=== PATIENT | female | born 1985 | race Caucasian/White ===

== ENCOUNTER 2019-06-18 17:25 | Emergency (ER) | payer SELFPAY ==
[2019-06-18 17:26] VITALS: BP 154/98; PULSE 78; RESP 16; TEMP 36.1; O2SAT 97; BMI 26.6
--- NOTE | 2019-06-18 17:39 | EKG12_ITS ---
Test Reason : CP Blood Pressure : / mmHG Vent. Rate : 077 BPM Atrial Rate : 077 BPM P-R Int : 134 ms QRS Dur : 090 ms QT Int : 372 ms P-R-T Axes : 044 013 072 degrees QTc Int : 420 ms Normal sinus rhythm Septal infarct , age undetermined , cannot be excluded Abnormal ECG Confirmed by OKSANA ANDREWS, LB ([id number]), map editor VICTORINA ARECHIGA ([id number]) on 06/20/2019 9:40:21 AM Referred By: ALEX/KEVIN Confirmed By:LB GANDHI MD
--- NOTE | 2019-06-18 17:39 | RAD_ITS ---
STUDY: X-RAY CHEST REASON FOR EXAM: Female, 34 years old. Syncope. TECHNIQUE: Single AP portable view of the chest. COMPARISON: None. FINDINGS: The lungs are clear and expanded. There is no demonstrated pleural abnormality. Normal size heart. Normal mediastinum and reese. Normal visualized pulmonary arteries. Normal visualized aortic arch and descending thoracic aorta. Normal visualized thoracic spine. Normal visualized ribs, clavicles, and shoulders. There is no demonstrated abnormality of the visualized soft tissue structures of the upper abdomen. RAD/Chest 1 View (Portable) IMPRESSION: Normal x-ray examination of the chest. Electronically Signed: Vance Norman DO at 18:10 EST Tel [phone], Service support ,
--- NOTE | 2019-06-18 17:40 | ED.DCSUM_ITS ---
- ER Visit Summary Date of Service: 06/18/19 Chief Complaint: Passed out at work History of Present Illness: The patient is a 34 F exam past medical history. Patient states she is at work. She drank some chocolate milk. She thought was going down the wrong tube and passed out. Said a coworker caught her lowered to the ground. Before it happened she denied any shortness of breath or headache. She is never had a syncopal event before. Denies any recent nausea, vomiting or diarrhea. Her last menstrual period was about 3 weeks ago. No leg pain or swelling. No history of prior PE or DVT. Physical Examination: Young female no acute distress. Vital signs are stable. And afebrile. Pulse ox 97% room air no signs of hypoxia. Initial blood pressure 154/98. HEENT exam unremarkable. Dry reactive light. Extra motions are intact. Normal speech. No facial droop. No signs of trauma to her face or scalp. Neck nontender. Lungs clear to auscultation bilaterally. Heart regular rhythm no murmur rate about 80. Chest were nontender. Abdomen soft nontender. Normal bowel sounds no peritoneal signs. Patient is moving all 4 extremities. Neurovascular intact. 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 Dorsi plantar flexion intact. Normal radial pulses. Calves are nontender without edema or cords. Back nontender. Neurologic exam normal. NIH is 0. Fingertip to nose and [id number] all within normal limits. Test Results: Chest x-ray portable one view read as normal by myself the radiologist. Normal cardiac silhouette. EKG sinus rhythm rate 77 no acute signs of PR or ischemia. No obvious dysrhythmia. CBC normal. White count of 9. Hemoglobin 13. Chemistries normal normal creatinine and gap. Troponin normal. Orthostatic vital signs were negative. Emergency Department Course and Treatment: Patient with a syncopal event. Currently has a normal exam. PD exam the patient is doing well at 2031 PM. Her exam is unchanged. We went over all of her test results. She will be discharged home. Treatment Plan: Follow-up with a local physician. Disposition: Discharge Impression: Acute syncope of uncertain etiology This note was generated with Attolight[employer] software. It may contain incorrect words, spelling, and punctuation that were not noted in review of the chart prior to signing ED Disposition - Plan for ED Patient: Referrals: Care Physician,Debbie Primary [Primary Care Provider] -
[2019-06-18 18:01] LABS: Absolute Lymphocyte Count 2.97 X10^3/uL (0.83-4.51); Absolute Neutrophil Count 5.5 X10^3/uL (2.0-7.7); Basophil# 0.05 X10^3/uL; Basophil% 0.5 % (0-1); Eosinophil# 0.16 X10^3/uL; Eosinophils% 1.7 % (0-5); Hematocrit 39.4 % (37-47); Lymphocyte # 2.97 X10^3/ul (4.0); Lymphocyte % 31.6 % (19-41); Mean Corpuscular Hgb 28.4 pg (27.0-32.0); Mean Platelet Vol. 9.1 fl (6.2-12.0); Monocyte# 0.69 X10^3/uL; Monocyte% 7.3 % (0-10); NRBC Flagged by Analyzer 0 % (0-5); Neutrophil # 5.51 X10^3/uL (2.7-7.7); Neutrophil % 58.6 % (47-70); POSITIVE MORPHOLOGY YES; Platelet Count 254 K/mm3 (150-450); RBC Distribution Width CV 12.7 % (11.6-14.6); RBC Distribution Width SD 39.8 fl (35.1-43.9); Red Blood Count 4.58 M/mm3 (4.2-5.4); White Blood Count 9.4 K/mm3 (4.4-11.0)
[2019-06-18 18:10] LABS: Differential Indicated SCAN CRITERIA MET
[2019-06-18 18:14] LABS: Anion Gap 5 (5-15); BUN 12 mg/dL (7-18); BUN/Creat Ratio 14.5 RATIO (10-20); Calcium,Total 9.2 mg/dL (8.5-10.1); Chloride 108 mmol/L (98-107); Creatinine, Serum 0.82 mg/dL (0.55-1.02); EST Glomerular Filtration Rate 83 mL/min (>60); Est Glom Filt Rate - Afr Amer 101 mL/min (>60); Estimated Creatinine Clearance 88.79 ml/min; Glucose 102 mg/dL (74-106); Potassium 3.7 mmol/L (3.5-5.1); Sodium Level 139 mmol/L (136-145)
[2019-06-18 18:16] VITALS: BP 137/90; BP 141/72; BP 145/90; PULSE 63; PULSE 76; PULSE 86
[2019-06-18 18:33] LABS: Differential Comment SCANNED
--- NOTE | 2019-06-18 20:36 | ED.DEP ---
ED Disposition - Plan for ED Patient: Disposition: Home or Assisted Living Instructions: SYNCOPE, Unk Cause Referrals: Lam Patel MD [STAFF PHYSICIAN] - 1 Week Additional Instructions: Your tests and exam are normal today. We do not have a cause of why you may have passed out. Follow-up with a local physician as needed. Return if feeling worse.
[2019-06-18 20:37] VITALS: BP 149/100; O2SAT 96
== END 2019-06-18 20:40 | disposition home or self-care (01) ==
PROVIDERS: Emergency Provider Emergency Medicine
DX: R55 Syncope and collapse (principal); R11.2 Nausea with vomiting, unspecified; R19.7 Diarrhea, unspecified; Z72.0 Tobacco use
CPT/HCPCS: 71045; 80048; 84484; 85025; 93005; 99285; A4216

== ENCOUNTER 2025-01-20 14:32 | Emergency (ER) | payer OTHER, SELFPAY ==
[2025-01-20 14:34] VITALS: BP 185/122; PULSE 98; RESP 18; TEMP 36.9; O2SAT 98; BMI 37.4
[2025-01-20 14:45] VITALS: BP 178/100
--- NOTE | 2025-01-20 15:34 | EX.ED.DYSGE1 ---
HPI History of Present Illness Chief Complaint: Hypertension Informant: patient Onset/Context/Timing Onset: Days (3) Context: Gradual Onset Timing: Continuous Quality: Burning Location: Left iliac crest Worsened by: Palpation Relieved by: Nothing Narrative Narrative: Patient presents with elevated blood pressure that was noticed at the urgent care today. Patient states she was bit by a spider 3 days ago. Patient states she has redness and swelling over her left hip area. Patient describes it as burning. Patient states it is worse with palpation. Patient states nothing makes it better. Patient denies any discharge or drainage. Patient went to urgent care today to see if they could prescribe an antibiotic for her bite. Patient states he noted her blood pressure was elevated and referred her to the emergency department. [facility] Medical History Asthma TSS (toxic shock syndrome) Home Medications ?Medication ?Instructions ?Recorded ?Last Taken ?Type amoxicillin 875 mg-potassium 875 mg PO Q12H #20 TABLETS 01/20/25 Unknown Rx clavulanate 125 mg tablet cetirizine 10 mg tablet (24Hour 10 mg PO DAILY allergy symptoms 01/20/25 01/20/25 History Allergy) omeprazole 20 mg tablet,delayed 20 mg PO DAILY 01/20/25 01/20/25 History release Allergy/AdvReac Type Severity Reaction Status Date / Time latex AdvReac Itching Verified 01/20/25 14:36 Family History no significant family his Surgical History Previous section Social History Smoking Status: Heavy Smoker (>10/day) ROS ROS ED Constitutional Constitutional ED: Denies chills or fever(s) Eyes Eyes: Denies blurry vision or change in vision ENT ENT ED: Denies rhinorrhea or sore throat Cardiovascular Cardiovascular: Denies chest pain or palpitations Respiratory/Chest Respiratory/Chest: Reports dyspnea; Denies cough Gastrointestinal Gastrointestinal: Denies nausea or vomiting Genitourinary Genitourinary ED: Denies dysuria or hematuria Musculoskeletal Musculoskeletal: Denies back pain or neck pain Integumentary Denies abscess or rash Neurologic Neurologic: Reports headache(s); Denies weakness Allergic/Immunologic Allergic/Immunologic ED: Denies mouth swelling or urticaria EXAM Physical Exam Const Vital Signs: 01/20/25 14:34 01/20/25 14:45 01/20/25 14:45 Temperature 98.4 F Temperature Source Oral Pulse Rate 98 Respiratory Rate 18 Respiratory Effort Normal Respiratory Depth Respiratory Pattern Normal Blood Pressure 185/122 H 178/100 H Blood Pressure Mean 143 126 Pulse Ox 98 Oxygen Delivery Method Room Air 01/20/25 14:46 01/20/25 16:33 Temperature Temperature Source Pulse Rate 67 Respiratory Rate 22 H Respiratory Effort Normal Respiratory Depth Normal Respiratory Pattern Normal Blood Pressure 168/103 H Blood Pressure Mean 124 Pulse Ox 98 Oxygen Delivery Method Room Air Room Air Positive well nourished and well developed Constitutional Narrative: BMI is 37.5. General Appearance ED: well developed and NAD HEENT Reports moist mucous membranes Neck supple and no JVD Resp normal respiratory effort and clear to auscultation bilaterally Cardio regular rate and regular rhythm GI non-tender and non-distended Palpation: soft Extremity normal to inspection Neuro oriented x3, CN's II-XII intact bilaterally and no sensory deficits noted Sensorium / Orientation: alert Motor Exam: strength 5/5 throughout Psych mental status grossly normal Skin Skin Narrative: There is erythema, warmth, and induration over the left iliac crest area. There is no fluctuance. There is no discharge or drainage. There does not appear to be any abscess formation. MDM MDM MDM Narrative Medical decision making narrative: Differential diagnosis includes cellulitis, hypertension, electrolyte abnormality, cardiac dysrhythmia, cardiac ischemia, and anxiety. EKG will be obtained to assess for cardiac dysrhythmia or cardiac ischemia. Chest x-ray will be obtained to assess for pneumonia and anticoagulation was started. CBC will be obtained to assess for leukocytosis and anemia. Basic metabolic profile will be obtained to assess for electrolyte abnormality and renal function. High-sensitivity troponin will be obtained to assess for cardiac ischemia. History & Record Review Additional record(s) reviewed:: Prior labs Lab Data Attestation: I reviewed the patient's lab results. Lab results narrative: CBC was reviewed and was within normal limits. Basic metabolic profile was reviewed and was within normal limits. High-sensitivity troponin was reviewed and was less than 6. Labs: Laboratory Results - last 24 hr 01/20/25 14:56 WBC 10.5 RBC 4.93 Hgb 12.8 Hct 39.2 MCV 79.5 L MCH 26.0 L MCHC 32.7 RDW Std Deviation 40.5 RDW Coeff of Viktoria 14.1 Plt Count 312 MPV 9.5 Immature Gran % (Auto) 0.600 Neut % (Auto) 60.2 Lymph % (Auto) 29.7 [place] % (Auto) 7.0 Eos % (Auto) 1.9 Baso % (Auto) 0.6 Absolute Neuts (auto) 6.3 Absolute Lymphs (auto) 3.11 Nucleated RBC % 0 Platelet Estimate ADEQUATE RBC Morphology NORM C+C Sodium 139 Potassium 4.3 Chloride 106 Carbon Dioxide 21.4 Anion Gap 12 BUN 11 Creatinine 0.80 Estim Creat Clear Calc 113.49 Est GFR (MDRD) Non-Af 95 BUN/Creatinine Ratio 13.2 Glucose 93 Calcium 9.0 Troponin T High Sens < 6 EKG Initial EKG: Attestation: I personally reviewed and interpreted this EKG as follows: Interpretation: Sinus Rhythm (71) and No Acute Injury Pattern Comments: EKG was obtained. On my independent interpretation, it showed a normal sinus rhythm with a rate of 71. [place] interval, QRS interval, and QTc intervals were all normal. There is borderline left axis deviation at -20. There are no acute ST or T wave changes. Prior EKG tracings: available for review Prior: Unchanged (06/18/2019) Treatment and Re-Evaluation :: Patient was given a dose of Unasyn here. Patient was advised of her findings. Patient refused chest x-ray. Patient was given a prescription for Augmentin. Patient's blood pressure improved to 168/103. Patient was instructed to follow-up with her primary care physician in 5 to 7 days. Patient was instructed to use warm compresses to her left hip. Patient was instructed to continue to monitor her blood pressures at home. Patient was instructed to return if worse in any way. Patient understood and was agreeable with the plan. All questions were answered. Discharge Plan Triage Chief Complaint: Hypertension Other Complaint: Bite Shortness of Breath ED Provider: Vlad Medina Dx/Rx/DC Orders Clinical Impression: Cellulitis of left hip, Elevated blood pressure reading without diagnosis of hypertension Instructions: ED Cellulitis, ED Hypertension, To Be Confirmed Prescriptions: New amoxicillin-pot clavulanate 875-125 mg tablet 875 mg PO Q12H Qty: 20 0RF No Action omeprazole 20 mg tablet,delayed release (DR/EC) 20 mg PO DAILY cetirizine [24Hour Allergy] 10 mg tablet 10 mg PO DAILY Patient Comments: PT ONLY TAKE BECAUSE OF SPIDER BITE; NOT ROUTINE. Primary Care Provider: Care Physician,No Primary Referrals: Miguel Fernandes MD [Med Staff - All Terrain Vehicle Racer] - 3-5 Days Care Physician,No Primary [Primary Care Provider] - Print Language: [place] Disposition Disposition: Home, Self Care
--- NOTE | 2025-01-20 15:42 | EKG12_ITS ---
Test Reason : HYPERTENSION Blood Pressure : */* mmHG Vent. Rate : 71 BPM Atrial Rate : 71 BPM P-R Int : 140 ms QRS Dur : 92 ms QT Int : 400 ms P-R-T Axes : 29 -20 54 degrees QTcB Int : 434 ms Normal sinus rhythm Normal ECG Confirmed by AJAY ANDREWS, JOEL ([id number]), managing editor AILYN HE ([id number]) on 01/22/2025 7:45:17 AM Referred By: Confirmed By: JOEL MOSS MD
--- OUTSIDE RECORDS SUMMARY | 2025-01-20 15:45 | XMS RPT_ITS | CCD ---
Author Organization [facility] Care Team Providers Care Right Of Way Worker Name Role Phone Popeye ANDREWS, Justine Primary Care Provider [phone] TERE LR Attending Unavailable JUSTINE RUAON Referring Unavailable JUSTINE RUANO Primary Care Unavailable JUSTINE RUANO Referring Unavailable JUSTINE RUANO Primary Care Unavailable Allergies Allergy Classification Reported Allergen(s) Allergy Type Date of Onset Reaction(s) Facility (7 sources) Latex; Translations: [LATEX] Propensity to adverse reactions 7 [facility] Work Phone: (7 sources) venlafaxine; Translations: [VENLAFAXINE ANALOGUES] Drug Allergy 5 Mental Status Change [facility] Medications Current Medications Medication Drug Class(es) Dates Sig (Normalized) Sig (Original) [id number] 200 actuat albuterol 0.09 mg/actuat metered dose inhaler (6 sources) beta2-Adrenergic Agonist Start: 09-23-2017 take 2 puff(s) by inhalation every four hours as needed albuterol HFA (PROVENTIL HFA, VENTOLIN HFA) 90 mcg/actuation inhaler Indications: Acute bronchitis, unspecified organism Inhale 2 Puffs as instructed every 4 hours as needed. 1 Inhaler 09/23/2017 Active Comment on above: Inhale 2 Puffs as in structed every 4 hours as needed. doxycycline monohydrate 100 mg oral capsule (2 sources) Tetracycline-clas s Drug Start: 06-16-2022 End: 06-23-2022 take 1 capsule by mouth twice daily doxycycline monohydrate (MONODOX) 100 mg capsule Take 1 capsule by mouth twice daily for 7 days. 14 capsule 0 06/16/2022 06/23/2022 Active Comment on above: Take 1 capsule by mo uth twice daily for 7 days. fluconazole 150 mg oral tablet (1 source) Azole Antifungal Start: 06-17-2022 End: 06-18-2022 take 1 tablet by mouth once daily fluconazole (DIFLUCAN) 150 mg tablet Take 1 tablet by mouth once daily for 1 day. 1 tablet 1 06/17/2022 06/18/2022 Active Comment on above: Take 1 tablet by kev th once daily for 1 day. pantoprazole 40 mg oral granules (2 sources) Proton Pump Inhibitor take 40 mg by mouth once daily in the morning pantoprazole (PROTONIX) 40 mg grps Take 40 mg by mouth daily at 6 am. Active Problems Active Problems Problem Classification Problem Date Documented Date Episodic/Chronic Mood disorders (6 sources) Dysthymia; Translations: [Dysthymic disorder] Onset: 02-25-2011 03-25-2014 Chronic Other female genital disorders (1 source) Vaginal discharge; Translations: [Other specified noninflammatory disorders of vagina] Episodic Other non-traumatic joint disorders (1 source) Pain in right shoulder; Translations: [Pain in joint, shoulder region] 06-27-2021 Episodic Other nutritional; endocrine; and metabolic disorders (6 sources) Obese class I; Translations: [Obesity, unspecified] Onset: 03-25-2014 03-25-2014 Chronic Other screening for suspected conditions (not mental disorders or infectious disease) (6 sources) Patient encounter status; Translations: [Encounter for screening mammogram for malignant neoplasm of breast] Onset: 05-28-2024 02-22-2024 Episodic Past or Other Problems Problem Classification Problem Date Documented Date Episodic/Chronic Disorders of teeth and jaw (6 sources) Arthralgia of temporomandibular joint; Translations: [Arthralgia of temporomandibular joint, unspecified side] Onset: 12-21-2013 08-03-2021 Episodic Headache; including migraine (6 sources) Headache; Translations: [Headache] Onset: 12-21-2013 08-03-2021 Episodic Hypertension complicating ; childbirth and the puerperium (12 sources) Transient hypertension of ; Translations: [Gestational [-induced] hypertension without significant proteinuria, unspecified trimester] Onset: 03-01-2007 Resolved: 09-08-2009 02-16-2024 Episodic Other complications of (8 sources) Supervision of other high risk pregnancies, unspecified trimester; Translations: [Supervision of other high-risk ] Onset: 03-01-2007 Resolved: 09-08-2009 02-16-2024 Episodic Other complications of (4 sources) High risk ; Translations: [Supervision of high risk , unspecified, unspecified trimester] Onset: 04-29-2007 Resolved: 07-21-2007 02-16-2024 Episodic Other and delivery including normal (4 sources) Normal ; Translations: [Encounter for supervision of other normal , unspecified trimester] Onset: 12-23-2006 Resolved: 03-01-2007 02-16-2024 Episodic Other skin disorders (6 sources) Hirsutism; Translations: [Hirsutism] Onset: 05-06-2015 05-06-2015 Episodic Polyhydramnios and other problems of amniotic cavity (4 sources) Oligohydramnios with problem; Translations: [Oligohydramnios, unspecified trimester, not applicable or unspecified] Onset: 08-26-2009 Resolved: 09-08-2009 09-08-2009 Episodic Skin and subcutaneous tissue infections (6 sources) Disorder of nail; Translations: [Cellulitis of unspecified toe] Onset: 10-03-2007 10-03-2007 Episodic Spondylosis; intervertebral disc disorders; other back problems (18 sources) Lumbago with sciatica; Translations: [Lumbago with sciatica, unspecified side] Onset: 05-21-2009 05-21-2009 Episodic Results Test Name Value Interpretation Reference [facility] Office Visit (OBGYWM ) MONSERRAT MASON ([id number]) 1985 F Date Time Provider Department 05/28/24 1:30 PM TERE LR OBTALWJose Elias During your visit today, we recorded the following information about you: Blood pressure Weight Height Last Period 148/86 107.8 kg 1.67 m 05/24/24 Tere Lr APRN.CNP 05/28/2024 1:52 PM Signed Patient declined greige mender. Monserrat is a 39 year old who presents for an annual gynecologic exam without complaints. Concerns about perimenopause- decrease libido, vaginal dryness, acne Menses: cycles every 21-30 days and 5 days of flow. 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 Pap smear (cervix) Hirsutism 05/06/2015 Migraine, unspecified, with intractable migraine, so stated, without mention of status migrainosus Migraine induced hypertension 2006,2009 Toxic shock syndrome (HCC) 2005 HELLP syndrome Unspecified asthma(493.90) SPORTS INDUCED CHILDHOOD ASTHMA Vertigo PAST SURGICAL HISTORY Procedure Laterality Date DELIVERY ONLY , low transverse COLPOSCOPY CERVIX UPPER/ADJACENT VAGINA 2002 Colposcopy FAMILY HISTORY Problem Relation Age of Onset Alcohol/Drug Father Alzheimer's Disease Maternal Grandmother Cervical Cancer Maternal Aunt Hypertension Mother Hypertension Maternal Uncle Osteoporosis Maternal Grandmother SOCIAL HISTORY Social History Tobacco Use Smoking status: Every Day Current packs/day: 1.00 Average packs/day: 1 pack/day for 6.0 years (6.0 ttl pk-yrs) Types: Cigarettes Smokeless tobacco: Never Substance Use Topics Alcohol use: No Drug use: No REVIEW OF SYSTEMS Abdomen: No abdominal pain, nausea, vomiting, diarrhea, or constipation. No bloating, early satiety, indigestion, or increased flatulence. Bladder: No dysuria, gross hematuria, urinary frequency, urinary urgency, ++ stress incontinence. Breast: No breast lumps, nipple d/c, overlying skin changes, redness or skin retraction. Allergies and current medication updated:Yes SENSITIVE EXAM: The sensitive examination was discussed with the Patient or Patient's Authorized Dietary Clerk. As applicable, any other physician, advance practice provider, medical student, or other health professional student that will be observing or involved in the sensitive examination for educational or training purposes was discussed with the Patient or Authorized Dietary Clerk. The Patient or Authorized Dietary Clerk has agreed to proceed with the sensitive examination. (Sensitive examination includes inspection and/or palpation of the breasts, pelvis, prostate and anorectal regions). EXAM: LMP 07/02/2021 GENERAL: pleasant, female in no apparent distress HEENT: Normocephalic, atraumatic, mucus membranes moist, and no lesions NECK: Supple, full range of motion, no adenopathy, and thyroid normal DERMATOLOGY: Normal, without lesions, and non-icteric BREAST: soft, non-tender, symmetric, no dominant mass, normal nipple-areolar complex, no lymphadenopathy, and no nipple discharge CHEST: Normal inspiratory effort ABDOMEN: soft, non-tender, and no masses PELVIC: external genitalia normal, normal Bartholin's glands, urethra, Benjamin's glands, no vulvar lesions, no cervical lesions, physiologic discharge present, normal appearing perineal body and perianal region BIMANUAL: uterus normal size, shape and consistency, no adnexal masses, and non-tender RECTOVAGINAL: deferred. NEURO: alert and oriented x3,exam grossly non-focal EXTREMITIES: normal ASSESSMENT/PLAN: 1) Health maintenance: Pap done with HPV. Mammogram up to date . Nutrition, exercise and routine health maintenance exams reviewed. Calcium/Vitamin D supplementation information provided. 2) Contraception: none. Contraceptive options reviewed and information provided. 3) STD screening: Declined STD check. 4) Follow up one year or sooner as needed Tere Lr APRN.BUS ANALYST Referring Provider: JUSTINE RUANO [[id number]] Allergies As of Date: 05/28/2024 Noted Allergy Reaction EFFEXOR (VENLAFAXINE ANALOGUES) 03/25/2015 1 - Mental Status Change LATEX 12/23/2006 Comments: BURNING [place] Date Reviewed: 05/28/2024 Reviewed by: Areli Lr (more content not included)... Normal [facility] HIGH RISK HUMAN PAPILLOMA TIMMY (HPV), PCR FOR DETECTION AND GENOTYPINGon 05-28-2024 HPV 16 Ag Ql (Unsp spec) Not detected Normal Not detected [facility] Comment on above: Order Comment: Speci men Type: FLUID SPECIMEN Ordering Facility: [facility] Address: [address] [place] [address] Performed By: #### L [id number] #### [facility] CLIA [id number] [address] [place] [address] [place] [facility] CLIA [id number] [address] [place] [address] [place] #### HPVHRT #### [facility] CLIA [id number] [address] [place] [address] [place] HPV 18 Ag Ql (Unsp spec) Not detected Normal Not detected [facility] Comment on above: Order Comment: Speci men Type: FLUID SPECIMEN Ordering Facility: [facility] Address: [address] [place] [address] Performed By: #### L [id number] #### [facility] CLIA [id number] [address] [place] [address] [place] [facility] CLIA [id number] [address] [place] [address] [place] #### HPVHRT #### [facility] CLIA [id number] [address] [place] [address] [place] HPV 31+33+35+39+45+51+5 2+56+58+59+66+68 DNA LUDY+probe Ql (Cvx) Not detected Normal Not detected [facility] Comment on above: Order Comment: Speci men Type: FLUID SPECIMEN Ordering Facility: [facility] Address: [address] [place] [address] Result Comment: High Risk HPV Other Type includes HPV types 31, 33, 35, 39, 45, 51, 52, 56, 58, 59, 66 and 68. Performed By: #### L [id number] #### [facility] CLIA [id number] [address] [id number] [place] [facility] CLIA [id number] [address] [facility] [place] [address] [place] #### HPVHRT #### [facility] CLIA [id number] [address] [id number] [place] ABDIRAHMAN SCREENING W TOMOon 05-28 ABDIRAHMAN SCREENING W LUIS * * *Final Report* * * DATE OF EXAM: May 28 2024 12:48PM [id number] - ABDIRAHMAN SCREENING W LUIS / PROCEDURE REASON: Encounter for screening mammogram for breast cancer * * * * Physician Interpretation * * * * RESULT: [facility] [address] [place] [address] HISTORY: Patient is 39 years old and is seen for screening and is asymptomatic in both breasts. Patient states no personal history of breast cancer. Patient states no personal history of other cancers. COMPARISON STUDIES: This is a baseline study. MAMMOGRAM TECHNIQUE: The study was acquired using full field digital technology and interpreted from soft copy. Digital Breast Tomosynthesis (DBT) images were obtained and used to assist in the interpretation of this examination. Computer-aided detection was utilized by the radiologist in the interpretation of this examination. MAMMOGRAM FINDINGS: The breasts are almost entirely fatty. No suspicious masses, calcifications or other abnormalities are seen in either breast. IMPRESSION: There is no mammographic evidence of malignancy in either breast. A routine follow-up mammogram in 1 year is recommended. BI-RADS Category 1: Negative RISK: Based on the Tyrer-Cuzick (TC) risk assessment model, this patient has a 4.3% lifetime risk of developing breast cancer, meaning they are at average risk for developing breast cancer. However, this is only an estimate based on available history provided on the patient's questionnaire. We encourage all patients to talk with their providers about these results, further recommendations for managing breast health, and appropriate supplemental screening options if the patient has dense breast tissue. Interpreting Radiologist: Neha Barton M.D. Electronically signed on: 05/29/2024 Lastex Operator: [email or web address] Transcribe Date/Time: May 28 2024 12:39P Dictated by: NEHA BARTON MD This examination was interpreted and the report reviewed and electronically signed by: NEHA BARTON MD on May 29 2024 9:20AM EST [id number] Normal [facility] PAP TESTon 05-28-2024 ADEQUACY Normal [facility] Comment on above: Order Comment: Speci men Type: FLUID SPECIMEN Ordering Facility: [facility] Address: [address] [place] [address] Result Comment: Sati sfactory for interpretation. No endocervical component Performed By: #### L [id number] #### [facility] CLIA [id number] [address] [place] [address] [place] [facility] CLIA [id number] [address] [place] [address] [place] #### HPVHRT #### [facility] CLIA [id number] [address] [place] [address] [place] CASE REPORT Normal [facility] Comment on above: Order Comment: Speci men Type: FLUID SPECIMEN Ordering Facility: [facility] Address: [address] [place] [address] Result Comment: Gyne cologic Cytology Report Case: [id number] Authorizing Provider: Tere Lr APRN.BUS ANALYST Collected: 05/28/2024 02:04 PM Ordering Location: OB/Gynecology Received: 05/29/2024 08:27 AM First Screen: [place], [place], [place], ASCP Specimen: Pap Test, ThinPrep, Cervix Performed By: #### L [id number] #### [facility] CLIA [id number] [address] [place] [address] [place] [facility] CLIA [id number] [address] [place] [address] [place] #### HPVHRT #### [facility] CLIA [id number] [address] [place] [address] [place] CLINICAL HISTORY, CYTOLOGY, RIGHT OF WAY SUPERVISOR Routine Exam Normal [facility] Comment on above: Order Comment: Speci men Type: FLUID SPECIMEN Ordering Facility: [facility] Address: [address] [place] [address] Performed By: #### L [id number] #### [facility] CLIA [id number] [address] [place] [address] [place] [facility] CLIA [id number] [address] [place] [address] [place] #### HPVHRT #### [facility] CLIA [id number] [address] [place] [address] [place] [facility] Normal [facility] Comment on above: Order Comment: Speci men Type: FLUID SPECIMEN Ordering Facility: [facility] Address: [address] [place] [address] Result Comment: Tech nical component, radio commentator screening performed at [facility], [address] [place] [address] CLIA# [id number] Diagnostic interpretation performed at [facility], [address] [place], [place] [id number] CLIA# [id number] Granulizing Machine Operator: Myra Chiu M.D. Performed By: #### L [id number] #### [facility] CLIA [id number] [address] [place] [address] [place] [facility] CLIA [id number] [address] [place] [address] [place] #### HPVHRT #### [facility] CLIA [id number] [address] [place] [address] [place] INTERPRETATION, CYTOLOGY, RIGHT OF WAY SUPERVISOR Normal [facility] Comment on above: Order Comment: Speci men Type: FLUID SPECIMEN Ordering Facility: [facility] Address: [address] [place] [address] Result Comment: Nega tive for intraepithelial lesion or malignancy. Performed By: #### L [id number] #### [facility] CLIA [id number] [address] [place] [address] [place] [facility] CLIA [id number] [address] [place] [address] [place] #### HPVHRT #### [facility] CLIA [id number] [address] [place] [address] [place] LMP 05/24/2024 Normal [facility] Comment on above: Order Comment: Speci men Type: FLUID SPECIMEN Ordering Facility: [facility] Address: [address] [place] [address] Performed By: #### L [id number] #### [facility] CLIA [id number] [address] [place] [address] [place] [facility] CLIA [id number] [address] [place] [address] [place] #### HPVHRT #### [facility] CLIA [id number] [address] [place] [address] [place] PAP DISCLAIMER COMMENT The Pap Smear is a screening test for cervical cancer. False negative results occur with all screening tests, emphasizing the need for rescreening at recommended intervals, and clinical correlation. Normal [facility] Comment on above: Order Comment: Speci men Type: FLUID SPECIMEN Ordering Facility: [facility] Address: [address] [place] [address] Performed By: #### L [id number] #### [facility] CLIA [id number] [address] [place] [address] [place] [facility] CLIA [id number] [address] [place] [address] [place] #### HPVHRT #### [facility] CLIA [id number] [address] [place] [address] [place] PAP FORMING DEPARTMENT END FINDER COMMENT This specimen has be en analyzed by the ThinPrep Imaging System, an automated imaging and review system, which assists the laboratory in evaluating cells on ThinPrep Pap tests. Following automated imaging, selected miranda from every slide are reviewed by a radio commentator. Normal [facility] Comment on above: Order Comment: Speci men Type: FLUID SPECIMEN Ordering Facility: [facility] Address: [address] [place] [address] Performed By: #### L [id number] #### [facility] CLIA [id number] [address] [place] [address] [place] [facility] CLIA [id number] [address] [place] [address] [place] #### HPVHRT #### [facility] CLIA [id number] [address] [place] [address] [place] XR Shoulder - right 3 Viewso n 06-27-2021 IMPRESSION: Unremarkable radiograph Lastex Operator: GINO Transcribe Date/Time: Jun 27 2021 8:27A Dictated by : MARY BRAUN MD This examination was interpreted and the report reviewed and electronically signed by: MARY BRAUN MD on Jun 27 2021 8:27AM [facility] DIVISION OF RADIOLOGY * * *Final Report* * * DATE OF EXAM: Jun 27 2021 8:26AM WOX [id number] - XR SHLDR >/=3V AP/RAMON AP/OTHR RT / PROCEDURE REASON: Acute pain of right shoulder * * * * Physician Interpretation * * * * Right shoulder HISTORY: Shoulder pain FINDINGS: Three views were performed. No evidence of acute fracture or dislocation. Glenohumeral joint space: maintained Acromio-humeral interval: within normal limits. No evidence of a subacromial spur. Acromio-clavicular joint: Within normal limits DIVISION OF RADIOLOGY Provider, Brijesh Mclean - 06/27/2021 * * *Final Report* * * DATE OF EXAM: Jun 27 2021 8:26AM WOX [id number] - XR SHLDR >/=3V AP/RAMON AP/OTHR RT / PROCEDURE REASON: Acute pain of right shoulder * * * * Physician Interpretation * * * * Right shoulder HISTORY: Shoulder pain FINDINGS: Three views were performed. No evidence of acute fracture or dislocation. Glenohumeral joint space: maintained Acromio-humeral interval: within normal limits. No evidence of a subacromial spur. Acromio-clavicular joint: Within normal limits IMPRESSION IMPRESSION: Unremarkable radiograph Lastex Operator: PSCB Transcribe Date/Time: Jun 27 2021 8:27A Dictated by : MARY BRAUN MD This examination was interpreted and the report reviewed and electronically signed by: MARY BRAUN MD on Jun 27 2021 8:27AM EST [facility] Radiology Study observation (narrative) [facility] XR Shoulder - right 3 ViewsO rdered By: Ccf Provider on 06-27-2021 [facility] Discharge Instructionon 06-08 Discharge Instruction [facility] Medical Records Department [address] [place] [address] Discharge Instruction 06/18/192035 MR#: [id number] Acct: [id number] Name: MONSERRAT MASON Rep #: [id number] : 1985 34 From: Kamran Patel MD PCP: Care Physician, No Primary Status: DEP ER ED Disposition - Plan for ED Patient: Disposition: Home or Assisted Living Instructions: SYNCOPE, Unk Cause Referrals: Lam Patel MD [STAFF PHYSICIAN] - 1 Week Additional Instructions: Your tests and exam are normal today. We do not have a cause of why you may have passed out. Follow-up with a local physician as needed. Return if feeling worse. What to do if you have Problems For any increased pain, shortness of breath, bleeding, nausea or vomiting, chest pain, or any unexpected problems, contact your Primary Care Provider. Call [facility] ([phone]) or report to the closest Emergency Room. Call 911 if necessary. 06/18/19 2325 Date Kamran Patel MD Cosigner Signature (If Indicated): Date CC: No Primary Care Physician Normal [facility] Emergency Department Summary on 06-19-2019 Emergency Department Summary [facility] Medical Records Department [address] [place] [address] Emergency Department Summary 06/18/19 1740 MR#: [id number] Acct: [id number] Name: MONSERRAT MASON Rep #: [id number] : 1985 34 From: Kamran Patel MD PCP: Care Physician, No Primary Status: DEP ER - ER Visit Summary Date of Service: 06/18/19 Chief Complaint: Passed out at work History of Present Illness: The patient is a 34 F exam past medical history. Patient states she is at work. She drank some chocolate milk. She thought was going down the wrong tube and passed out. Said a coworker caught her lowered to the ground. Before it happened she denied any shortness of breath or headache. She is never had a syncopal event before. Denies any recent nausea, vomiting or diarrhea. Her last menstrual period was about 3 weeks ago. No leg pain or swelling. No history of prior PE or DVT. Physical Examination: Young female no acute distress. Vital signs are stable. And afebrile. Pulse ox 97% room air no signs of hypoxia. Initial blood pressure 154/98. HEENT exam unremarkable. Dry reactive light. Extra motions are intact. Normal speech. No facial droop. No signs of trauma to her face or scalp. Neck nontender. Lungs clear to auscultation bilaterally. Heart regular rhythm no murmur rate about 80. Chest were nontender. Abdomen soft nontender. Normal bowel sounds no peritoneal signs. Patient is moving all 4 extremities. Neurovascular intact. Equal symmetrical 5 out of 5 machine pecan picker strength. Dorsi plantar flexion intact. Normal radial pulses. Calves are nontender without edema or cords. Back nontender. Neurologic exam normal. NIH is 0. Fingertip to nose and [id number] all within normal limits. Test Results: Chest x-ray portable one view read as normal by myself the radiologist. Normal cardiac silhouette. EKG sinus rhythm rate 77 no acute signs of MA or ischemia. No obvious dysrhythmia. CBC normal. White count of 9. Hemoglobin 13. Chemistries normal normal creatinine and gap. Troponin normal. Orthostatic vital signs were negative. Emergency Department Course and Treatment: Patient with a syncopal event. Currently has a normal exam. PD exam the patient is doing well at 2031 PM. Her exam is unchanged. We went over all of her test results. She will be discharged home. Treatment Plan: Follow-up with a local physician. Disposition: Discharge Impression: Acute syncope of uncertain etiology This note was generated with [employer] dictation software. It may contain incorrect words, spelling, and punctuation that were not noted in review of the chart prior to signing ED Disposition - Plan for ED Patient: Referrals: Care Physician,No Primary [Primary Care Provider] - What to do if you have Problems For any increased pain, shortness of breath, bleeding, nausea or vomiting, chest pain, or any unexpected problems, contact your Primary Care Provider. Call [facility] ([phone]) or report to the closest Emergency Room. Call 911 if necessary. 06/18/19 2644 Date Kamran Alfaro Signature (If Indicated): Date CC: No Primary Care Physician Normal [facility] Basic Metabolic Profile (BMP )on 06-18-2019 Calcium [Mass/Vol] 9.2 mg/dL Normal 8.5-10.1 [facility] Comment on above: Performed By: #### L 500.2500, L501.4010 #### [facility] [address] [place], [address] Chloride [Moles/Vol] 108 mmol/L High 98-107 [facility] Comment on above: Performed By: #### L 500.2500, L501.4010 #### [facility] [address] [place], [address] CO2 [Moles/Vol] 26.0 mmol/L Normal 21.0-32.0 [facility] Comment on above: Performed By: #### L 500.2500, L501.4010 #### [facility] [address] [place], [address] Creatinine [Mass/Vol] 0.82 mg/dL Normal 0.55-1.02 [facility] Comment on above: Result Comment: The validity of the calculated GFR AND GFRAA in patients over 70 years has not been determined. Clinical correlation is essential. Performed By: #### L 500.2500, L501.4010 #### [facility] [address] [place], [address] EST GFR - AA 101 mL/min Normal >60 [facility] Comment on above: Result Comment: Afri can Lebanese GFR Calc Performed By: #### L 500.2500, L501.4010 #### [facility] [address] [place], [address] Estimated CRCL 88.79 ml/min Normal [facility] Comment on above: Performed By: #### L 500.2500, L501.4010 #### [facility] [address] [place], [address] GAP 5 Normal 5-15 [facility] Comment on above: Performed By: #### L 500.2500, L501.4010 #### [facility] [address] [place], [address] GFR/1.73 sq M predicted among non-blacks MDRD (S/P/Bld) [Vol rate/Area] 83 mL/min/{1.73_m2} Normal >60 [facility] Comment on above: Result Comment: Non- GFR Calc Performed By: #### L 500.2500, L501.4010 #### [facility] [address] [place], [id number] Glucose [Mass/Vol] 102 mg/dL Normal 74-106 [facility] Comment on above: Result Comment: Fast ing Glucose result from 100 to 125 mg/dL suggests IMPAIRED HOMEOSTASIS per A.D.A. criteria. Please note revised GLUCOSE reference range effective 2017. Performed By: #### L 500.2500, L501.4010 #### [facility] [address] [place], [address] Potassium [Moles/Vol] 3.7 mmol/L Normal 3.5-5.1 [facility] Comment on above: Performed By: #### L 500.2500, L501.4010 #### [facility] [address] [place], [id number] Sodium [Moles/Vol] 139 mmol/L Normal 136-145 [facility] Comment on above: Performed By: #### L 500.2500, L501.4010 #### [facility] [address] [place], [address] Urea nitrogen [Mass/Vol] 14.5 RATIO Normal 10-20 [facility] Comment on above: Performed By: #### L 500.2500, L501.4010 #### [facility] [address] [place], [id number] Urea nitrogen [Mass/Vol] 12 mg/dL Normal 7-18 [facility] Comment on above: Performed By: #### L 500.2500, L501.4010 #### [facility] [address] [place], [id number] CBC W/Diff, Automatedon 11- SMEAR COMMENT SCANNED Normal [facility] Comment on above: Result Comment: AUTO DIFF OK Performed By: #### L 100.0100 #### [facility] [address] [place], [id number] Absolute Neut 5.5 X10 3/uL Normal 2.0-7.7 [facility] Comment on above: Performed By: #### L 100.0100 #### [facility] [address] [place], [id number] Basophils/100 WBC (Bld) 0.5 % Normal 0-1 [facility] Comment on above: Performed By: #### L 100.0100 #### [facility] [address] [place], [id number] Eosinophils/100 WBC (Bld) 1.7 % Normal 0-5 [facility] Comment on above: Performed By: #### L 100.0100 #### [facility] [address] [place], [address] Erythrocyte distribution width (RBC) [Ratio] 12.7 % Normal 11.6-14.6 [facility] Comment on above: Performed By: #### L 100.0100 #### [facility] [address] [place], [id number] Hematocrit (Bld) [Volume fraction] 39.4 % Normal 37-47 [facility] Comment on above: Performed By: #### L 100.0100 #### [facility] [address] [place], [id number] Hemoglobin (Bld) [Mass/Vol] 13.0 g/dL Normal 12.0-15.0 [facility] Comment on above: Performed By: #### L 100.0100 #### [facility] [address] [place], [id number] IM GRAN % 0.300 % Normal 0.0-0.9 [facility] Comment on above: Result Comment: IG% - Immature Granulocytes (promyelocytes, myelocytes and metamyelocytes) > 1% indicates that a LEFT SHIFT is Present. Performed By: #### L 100.0100 #### [facility] [address] [place], [id number] Lymphocytes (Bld) [#/Vol] 2.97 X10 3/uL Normal 0.83-4.51 [facility] Comment on above: Performed By: #### L 100.0100 #### [facility] [address] [place], [id number] Lymphocytes/100 WBC (Bld) 31.6 % Normal 19-41 [facility] Comment on above: Performed By: #### L 100.0100 #### [facility] [address] [place], [id number] MCH (RBC) [Entitic mass] 28.4 pg Normal 27.0-32.0 [facility] Comment on above: Performed By: #### L 100.0100 #### [facility] [address] [place], [id number] MCHC (RBC) [Mass/Vol] 33.0 g/dL Normal 32-36 [facility] Comment on above: Performed By: #### L 100.0100 #### [facility] [address] [place], [id number] MCV (RBC) [Entitic vol] 86.0 fL Normal 81-99 [facility] Comment on above: Performed By: #### L 100.0100 #### [facility] [address] [place], [id number] Monocytes/100 WBC (Bld) 7.3 % Normal 0-10 [facility] Comment on above: Performed By: #### L 100.0100 #### [facility] [address] [place], [id number] Neutrophils/100 WBC (Bld) 58.6 % Normal 47-70 [facility] Comment on above: Performed By: #### L 100.0100 #### [facility] [address] [place], [id number] NRBC, FLAGGED 0 % Normal 0-5 [facility] Comment on above: Performed By: #### L 100.0100 #### [facility] [address] [place], [id number] Platelet mean volume (Bld) [Entitic vol] 9.1 fL Normal 6.2-12.0 [facility] Comment on above: Performed By: #### L 100.0100 #### [facility] [address] [place], [id number] Platelets (Bld) [#/Vol] 254 10*3/uL Normal 150-450 [facility] Comment on above: Performed By: #### L 100.0100 #### [facility] [address] [place], [id number] RBC (Bld) [#/Vol] 4.58 M/mm3 Normal 4.2-5.4 [facility] Comment on above: Performed By: #### L 100.0100 #### [facility] [address] [place], [id number] RDW SD 39.8 fl Normal 35.1-43.9 [facility] Comment on above: Performed By: #### L 100.0100 #### [facility] [address] [place], [id number] WBC (Bld) [#/Vol] 9.4 10*3/uL Normal 4.4-11.0 [facility] Comment on above: Performed By: #### L 100.0100 #### [facility] [address] [place], [id number] Chest 1 View (Portable)on Chest 1 View (Portable) [facility] Imaging Services [address] [place] [id number] Chest 1 View (Portable) MR#: [id number] Acct: [id number] Name: MONSERRAT MASON Rep #: [id number] : 1985 F 34 From: Vance Norman DO PCP: Care Physician, No Primary Status: PRE ER Study: Chest 1 View (Portable) Date of Exam: 06/18/19 Exam# [id number] Ordering Dr: Kamran Patel MD STUDY: X-RAY CHEST REASON FOR EXAM: Female, 34 years old. Syncope. TECHNIQUE: Single AP portable view of the chest. COMPARISON: None. FINDINGS: The lungs are clear and expanded. There is no demonstrated pleural abnormality. Normal size heart. Normal mediastinum and reese. Normal visualized pulmonary arteries. Normal visualized aortic arch and descending thoracic aorta. Normal visualized thoracic spine. Normal visualized ribs, clavicles, and shoulders. There is no demonstrated abnormality of the visualized soft tissue structures of the upper abdomen. RAD/Chest 1 View (Portable) IMPRESSION: Normal x-ray examination of the chest. Electronically Signed: Vance Norman DO at 18:10 EST Tel [phone], Service support , CC: No Primary Care Physician; Kamran Patel MD [employer] Operator: Signed Normal [facility] Troponin-Ion 06-18-2019 Troponin I.cardiac [Mass/Vol] ng/mL Normal <0.045 [facility] Comment on above: Result Comment: TROP ONIN-I EXPECTED VALUES <0.045 Negative 0.045 - 0.590 Consistent with Cardiac Damage > OR = 0.600 Critical Value Not every elevated troponin is indicative of MA. These values should be used with clinical judgement in examining the patient's clinical picture for diagnosis. To establish a diagnosis of MA versus myocardial injury, there must be a demonstrated rise and/or fall in the troponin values, in addition to ischemic symptoms, EKG changes, new regional wall motion abnormality, and/or angiographical evidence. PLEASE NOTE: REFERENCE RANGES EDITED 17 Performed By: #### L 500.2500, L501.4010 #### [facility] [place], [address] Vital Signs Date Time Vital Sign Value Performing Clinician Keyla swanson 05-28-2024 13:24-0400 Body height 167 cm Tere Adeline SOCIAL AND POLITICAL STUDIES PROFESSOR.BUS ANALYST Work Phone: [facility] 05-28-2024 13:24-0400 Body mass index (BMI) [Ratio] 38.64 kg/m2 Tere Adeline SOCIAL AND POLITICAL STUDIES PROFESSOR.BUS ANALYST Work Phone: [facility] 05-28-2024 13:24-0400 Body weight 107.78 kg Tere Decatur SOCIAL AND POLITICAL STUDIES PROFESSOR.BUS ANALYST Work Phone: [facility] 05-28-2024 13:24-0400 Diastolic blood pressure 86 mm[Hg] Tere Adeline SOCIAL AND POLITICAL STUDIES PROFESSOR.BUS ANALYST Work Phone: [facility] 05-28-2024 13:24-0400 Systolic blood pressure 148 mm[Hg] Tere Decatur SOCIAL AND POLITICAL STUDIES PROFESSOR.BUS ANALYST Work Phone: [facility] 06-16-2022 17:45-0500 Body temperature 98.29 [degF] Carol Jensen APRN.BUS ANALYST Work Phone: [facility] 06-16-2022 17:45-0500 Body weight 94.26 kg Carol Jensen APRN.BUS ANALYST Work Phone: [facility] 06-16-2022 17:45-0500 Diastolic blood pressure 84 mm[Hg] Carol Jensen APRN.BUS ANALYST Work Phone: [facility] 06-16-2022 17:45-0500 Heart rate 92 /min Carol Jensen APRN.BUS ANALYST Work Phone: [facility] 06-16-2022 17:45-0500 Respiratory rate 16 /min Carol Jensen APRN.BUS ANALYST Work Phone: [facility] 06-16-2022 17:45-0500 SaO2% (BldA) [Mass fraction] 98 % Carol Jensen APRN.BUS ANALYST Work Phone: [facility] 06-16-2022 17:45-0500 Systolic blood pressure 136 mm[Hg] Carol Jensen APRN.BUS ANALYST Work Phone: [facility] Encounters Encounter Date Encounter Type Care Provider Facility Start: 05-28-2024 End: 05-28-2024 Patient encounter procedure Tere Lr BUS ANALYST Work Phone: OB/Gynecology Comment on above: Encounter for gyneco logical examination (general) (routine) without abnormal findings (Primary Dx); Screening for cervical cancer; Encounter for screening for human papillomavirus (HPV); Encounter for screening mammogram for breast cancer Start: 05-28-2024 End: 05-28-2024 Patient encounter status Tere Lr BUS ANALYST Work Phone: [facility] Start: 05-28-2024 End: 05-28-2024 ambulatory TERE LR Facility:[facility] Start: 05-28-2024 End: 05-28-2024 Subsequent hospital visit by physician Screen Mammo [facility] Mammogram Comment on above: Encounter for screen ing mammogram for breast cancer [Z12.31] Start: 02-22-2024 ambulatory Justine Colbert Work Phone: Internal Medicine [place] [id number] Start: 06-17-2022 Telephone encounter Angela Banegas APRN.CNP Work Phone: [facility] Comment on above: Results Start: 06-16-2022 End: 06-16-2022 Patient encounter procedure Carol Jensen APRN.BUS ANALYST Work Phone: [place] [facility] Comment on above: Vaginal discharge (P rimary Dx) Start: 06-27-2021 End: 06-27-2021 Subsequent hospital visit by physician Xr [facility] [place] Work Phone: Radiology Comment on above: Acute pain of right shoulder [M25.511] Procedures Date Procedure Procedure Detail Performing Clinician Start: 06-27-2021 Radex shoulder compl ete minimum 2 views Edin Small APRN.BUS ANALYST Work Phone: Start: 06-20-2019 12 lead ECG Plan of Treatment Date Care Activity Detail Author Start: 05-30-2025 End: 05-30-2025 Patient encounter procedure Mammogram Comment on above: Encounter for screen ing mammogram for breast cancer [Z12.31] ANNUAL Start: 05-28-2024 End: 05-28-2024 Patient encounter procedure Mammogram Comment on above: Encounter for screen ing mammogram for breast cancer [Z12.31] new annual Start: 04-08-2024 Covid-19 Vaccine ( season) Covid-19 Vaccine () [facility] Start: 04-08-2024 Influenza vaccination Influenza Vacc ine (#1) [facility] Start: 04-08-2023 Covid-19 Vaccine ( season) Covid-19 Vaccine () [facility] Start: 2023 Screening for malign ant neoplasm of breast Mammogram Screening [facility] Start: 06-16-2022 End: 08-16-2022 BACTERIAL VAGINOSIS AMPLIFICATION BACTERIAL VAGINOSIS AMPLIFICATION Lab Routine Vaginal discharge Expected: 06/16/2022, Expires: 08/16/2022 [facility] Work Phone: Comment on above: Expected: 06/16/2022 , Expires: 08/16/2022 Start: 04-08-2022 Influenza vaccination INFLUENZA (#1) [facility] Start: 02-14-2018 HPV TESTING HPV TESTING [facility] Start: 02-14-2018 PAP TESTING PAP TESTING [facility] Start: 02-14-2018 Screening for malign ant neoplasm of cervix Cervical Cancer Screening [facility] Start: 03-26-2014 Urine microalbumin profile [facility] Start: 2002 Hepatitis B Vaccine (1 of 3 - 19+ 3-dose series) Hepatitis B Vaccine (1 of 3 - 19+ 3-dose series) [facility] Start: 2001 Anxiety Screening Anxiety Screening [facility] Start: 2001 HEPATITIS C SCREENING HEPATITIS C [facility] Start: 2001 Hepatitis C screening Hepatitis C [facility] Start: 2001 HIV SCREENING HIV SCREENING [facility] Start: 2001 HIV screening HIV Screening [facility] Start: 1989 PNEUMOCOCCAL (1 - PCV) PNEUMOCOCCAL (1 - PCV) [facility] Start: 1989 Pneumococcal vaccination Pneumococcal Vaccine (1 of 2 - PCV) [facility] Start: 1983 COVID-19 VACCINE (#1) COVID-19 VACCI NE (#1) [facility] Start: 1985 HEPATITIS B (1 of 3 - 3-dose series) HEPATITIS B (1 of 3 - 3-dose series) [facility] WAI / TRICHOMONA S AMPLIFICATION WAI / TRICHOMONAS AMPLIFICATION Microbiology Routine Vaginal discharge Ordered: 06/16/2022 [facility] Work Phone: Comment on above: Ordered: 06/16/2022 Chlamydia trachomatis+Neisseria gonorrhoeae DNA [Presence] in Unspecified specimen by LUDY with probe detection GC/CHLAMYDIA DNA DET Lab Routine Vaginal discharge Ordered: 06/16/2022 [facility] Work Phone: Comment on above: Ordered: 06/16/2022 End: 03-23-2025 DBT Breast - bilateral screening ABDIRAHMAN SCREENING W [facility] Radiology Routine Encounter for screening mammogram for breast cancer 1 Occurrences starting 02/22/2024 until 03/23/2025 [facility] Work Phone: Comment on above: 1 Occurrences starti ng 02/22/2024 until 03/23/2025 End: 06-27-2025 DBT Breast - bilateral screening ABDIRAHMAN SCREENING [facility] Radiology Routine Encounter for gynecological examination (general) (routine) without abnormal findings Encounter for screening mammogram for breast cancer 1 Occurrences starting 05/28/2024 until 06/27/2025 [facility] Comment on above: 1 Occurrences starti ng 05/28/2024 until 06/27/2025 DBT Breast - bilater al screening ABDIRAHMAN SCREENING [facility] Radiology Routine Encounter for screening mammogram for breast cancer 05/28/2024 12:48 PM EDT [facility] Work Phone: PAP TEST PAP TEST Lab Airam abreu Encounter for gynecological examination (general) (routine) without abnormal findings Screening for cervical cancer Encounter for screening for human papillomavirus (HPV) Ordered: 05/28/2024 [facility] Work Phone: Comment on above: Ordered: 05/28/2024 Immunizations Immunization Date Immunization Notes Care Provider Darron gonzalez 03-25-2014 tetanus and diphther ia toxoids, adsorbed, preservative free, for adult use (5 Lf of tetanus toxoid and 2 Lf of diphtheria toxoid) Carol Jensen APRN.BUS ANALYST Work Phone: [facility] Work Phone: 06-05-2009 novel [id number], all formulations Carol Jensen APRN.BUS ANALYST Work Phone: [facility] 05-07-2009 influenza virus vaccine, unspecified formulation Carol Jensen APRN.BUS ANALYST Work Phone: [facility] Work Phone: 06-19-2007 influenza virus vaccine, unspecified formulation Carol Jensen APRN.BUS ANALYST Work Phone: [facility] Work Phone: Payers Date Payer Category Payer Unknown MMO MMO [employer] [id number] 2020-Present [phone] [address] [address] [place] [address] PPO [id number] 2020 Unknown [id number] Social History Date Type Detail Facility Start: 02-22-2011 End: 05-28-2024 Tobacco smoking status NHIS Smokes tobacco daily [facility] Work Phone: History of tobacco use Cigarette Smoker C [facility] Work Phone: Start: 02-22-2011 End: 05-28-2024 Cigarettes smoked current (pack per day) - Reported 1 [facility] Start: 02-22-2011 End: 05-28-2024 Tobacco use and exposure Smokeless tobacco non-user [facility] Work Phone: Start: 06-16-2022 End: 05-28-2024 Alcohol intake Current non-drinker of alcohol (finding) [facility] Start: 1985 Sex Assigned At Not on file C [facility] Start: 05-27-2021 End: 06-16-2022 Exposure to SARS-CoV-2 (event) Not sure [facility] Start: 06-17-2022 End: 05-28-2024 Tobacco use panel [facility] National Score (1-10 0), lower number is lower risk Not on file [facility] Clinical Notes 08-26-2009 to 05-28-2024 Tere Lr APRN.CNP - 05/28/2024 1:13 PM EDTTelephone Encounter - Jose Elias Gallo RN - 06/17/2022 10:19 AM ESTTelephone Encounter - Christina Higuera MA - 06/17/2022 9:20 AM EST Note Date & Type Note Facility 05-28-2024 Note HNO ID: [id number] Author: TERE LR APRN.CNP Service: ? Author Type: Nurse Practitioner Type: Progress Notes Filed: 05/28/2024 13:52 Note Text: Patient declined greige mender. Monserrat is a 39 year old who presents for an annual gynecologic exam without complaints. Concerns about perimenopause- decrease libido, vaginal dryness, acne Menses: cycles every 21-30 days and 5 days of flow. 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 Pap smear (cervix) Hirsutism 05/06/2015 Migraine, unspecified, with intractable migraine, so stated, without mention of status migrainosus Migraine induced hypertension 2006,2009 Toxic shock syndrome (HCC) 2005 HELLP syndrome Unspecified asthma(493.90) SPORTS INDUCED CHILDHOOD ASTHMA Vertigo PAST SURGICAL HISTORY Procedure Laterality Date DELIVERY ONLY , low transverse COLPOSCOPY CERVIX UPPER/ADJACENT VAGINA 2002 Colposcopy FAMILY HISTORY Problem Relation Age of Onset Alcohol/Drug Father Alzheimer's Disease Maternal Grandmother Cervical Cancer Maternal Aunt Hypertension Mother Hypertension Maternal Uncle Osteoporosis Maternal Grandmother SOCIAL HISTORY Social History Tobacco Use Smoking status: Every Day Current packs/day: 1.00 Average packs/day: 1 pack/day for 6.0 years (6.0 ttl pk-yrs) Types: Cigarettes Smokeless tobacco: Never Substance Use Topics Alcohol use: No Drug use: No REVIEW OF SYSTEMS Abdomen: No abdominal pain, nausea, vomiting, diarrhea, or constipation. No bloating, early satiety, indigestion, or increased flatulence. Bladder: No dysuria, gross hematuria, urinary frequency, urinary urgency, ++ stress incontinence. Breast: No breast lumps, nipple d/c, overlying skin changes, redness or skin retraction. Allergies and current medication updated:Yes SENSITIVE EXAM: The sensitive examination was discussed with the Patient or Patient's Authorized Dietary Clerk. As applicable, any other physician, advance practice provider, medical student, or other health professional student that will be observing or involved in the sensitive examination for educational or training purposes was discussed with the Patient or Authorized Dietary Clerk. The Patient or Authorized Dietary Clerk has agreed to proceed with the sensitive examination. (Sensitive examination includes inspection and/or palpation of the breasts, pelvis, prostate and anorectal regions). EXAM: LMP 07/02/2021 GENERAL: pleasant, female in no apparent distress HEENT: Normocephalic, atraumatic, mucus membranes moist, and no lesions NECK: Supple, full range of motion, no adenopathy, and thyroid normal DERMATOLOGY: Normal, without lesions, and non-icteric BREAST: soft, non-tender, symmetric, no dominant mass, normal nipple-areolar complex, no lymphadenopathy, and no nipple discharge CHEST: Normal inspiratory effort ABDOMEN: soft, non-tender, and no masses PELVIC: external genitalia normal, normal Bartholin's glands, urethra, Benjamin's glands, no vulvar lesions, no cervical lesions, physiologic discharge present, normal appearing perineal body and perianal region BIMANUAL: uterus normal size, shape and consistency, no adnexal masses, and non-tender RECTOVAGINAL: deferred. NEURO: alert and oriented x3,exam grossly non-focal EXTREMITIES: normal ASSESSMENT/PLAN: 1) Health maintenance: Pap done with HPV. Mammogram up to date . Nutrition, exercise and routine health maintenance exams reviewed. Calcium/Vitamin D supplementation information provided. 2) Contraception: none. Contraceptive options reviewed and information provided. 3) STD screening: Declined STD check. 4) Follow up one year or sooner as needed Tere Lr APRN.MELLISSA [facility] 05-28-2024 History of Presen t illness Narrative Patient declined greige mender. Monserrat is a 39 year old who presents for an annual gynecologic exam without complaints. Concerns about perimenopause- decrease libido, vaginal dryness, acne Menses: cycles every 21-30 days and 5 days of flow. 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 Pap smear (cervix) Hirsutism 05/06/2015 Migraine, unspecified, with intractable migraine, so stated, without mention of status migrainosus Migraine induced hypertension 2006,2009 Toxic shock syndrome (HCC) 2005 HELLP syndrome Unspecified asthma(493.90) SPORTS INDUCED CHILDHOOD ASTHMA Vertigo PAST SURGICAL HISTORY Procedure Laterality Date DELIVERY ONLY , low transverse COLPOSCOPY CERVIX UPPER/ADJACENT VAGINA 2002 Colposcopy FAMILY HISTORY Problem Relation Age of Onset Alcohol/Drug Father Alzheimer's Disease Maternal Grandmother Cervical Cancer Maternal Aunt Hypertension Mother Hypertension Maternal Uncle Osteoporosis Maternal Grandmother SOCIAL HISTORY Social History Tobacco Use Smoking status: Every Day Current packs/day: 1.00 Average packs/day: 1 pack/day for 6.0 years (6.0 ttl pk-yrs) Types: Cigarettes Smokeless tobacco: Never Substance Use Topics Alcohol use: No Drug use: No REVIEW OF SYSTEMS Abdomen: No abdominal pain, nausea, vomiting, diarrhea, or constipation. No bloating, early satiety, indigestion, or increased flatulence. Bladder: No dysuria, gross hematuria, urinary frequency, urinary urgency, ++ stress incontinence. Breast: No breast lumps, nipple d/c, overlying skin changes, redness or skin retraction. Allergies and current medication updated:Yes SENSITIVE EXAM: The sensitive examination was discussed with the Patient or Patient's Authorized Dietary Clerk. As applicable, any other physician, advance practice provider, medical student, or other health professional student that will be observing or involved in the sensitive examination for educational or training purposes was discussed with the Patient or Authorized Dietary Clerk. The Patient or Authorized Dietary Clerk has agreed to proceed with the sensitive examination. (Sensitive examination includes inspection and/or palpation of the breasts, pelvis, prostate and anorectal regions). EXAM: LMP 07/02/2021 GENERAL: pleasant, female in no apparent distress HEENT: Normocephalic, atraumatic, mucus membranes moist, and no lesions NECK: Supple, full range of motion, no adenopathy, and thyroid normal DERMATOLOGY: Normal, without lesions, and non-icteric BREAST: soft, non-tender, symmetric, no dominant mass, normal nipple-areolar complex, no lymphadenopathy, and no nipple discharge CHEST: Normal inspiratory effort ABDOMEN: soft, non-tender, and no masses PELVIC: external genitalia normal, normal Bartholin's glands, urethra, Benjamin's glands, no vulvar lesions, no cervical lesions, physiologic discharge present, normal appearing perineal body and perianal region BIMANUAL: uterus normal size, shape and consistency, no adnexal masses, and non-tender RECTOVAGINAL: deferred. NEURO: alert and oriented x3,exam grossly non-focal EXTREMITIES: normal ASSESSMENT/PLAN: 1) Health maintenance: Pap done with HPV. Mammogram up to date . Nutrition, exercise and routine health maintenance exams reviewed. Calcium/Vitamin D supplementation information provided. 2) Contraception: none. Contraceptive options reviewed and information provided. 3) STD screening: Declined STD check. 4) Follow up one year or sooner as needed Tere Lr APRN.MELLISSA documented in this encounter [facility] 02-22-2024 Note Patient Outreach (IN [facility]) MONSERRAT MASON ([id number]) 1985 F Date Time Provider Department 02/22/24 JUSTINE RUANO During your visit today, we recorded the following information about you: Allergies As of Date: 02/22/2024 Noted Allergy Reaction EFFEXOR (VENLAFAXINE ANALOGUES) 03/25/2015 1 - Mental Status Change LATEX 12/23/2006 Comments: BURNING WOTH CONDOMS Date Reviewed: 06/17/2022 Reviewed by: Angela Banegas APRN.BUS ANALYST - Fully Assessed Visit Diagnosis:Encounter for screening mammogram for breast cancer [Z12.31] Order(s):ABDIRAHMAN SCREENING W LUIS [[id number]] Order #: [id number] FUTURE Prescriptions as of 02/27/2024 - albuterol HFA (PROVENTIL HFA, VENTOLIN HFA) 90 mcg/actuation inhaler Inhale 2 Puffs as instructed every 4 hours as needed. Meds Comments as of 03/20/2009: All medications have been reviewed today/June 19, 2007 Maryan Jackson Lpn All medications have been reviewed today/September 04, 2007 Maryan Jackson Lpn Problem List As Of Date 02/22/2024 Noted Resolved SUPERVIS OTHER NORMAL PREG [Z34.80] 12/23/2006 03/01/2007 SUPRF HIGH RISK NEC [O09.899] 03/01/2007 07/21/2007 TRANS HYPERTEN-ANTEPART [O13.9] 03/01/2007 07/21/2007 MILD/NOS PREECLAMP-ANTEP [EZB6540] 04/29/2007 07/21/2007 SUPRV HIGH-RISK PREG NOS [O09.90] 04/29/2007 07/21/2007 ONYCHIA OF TOE [L03.039] 10/03/2007 Supervision of Other High-Risk [O09.8*03/20/2009 09/08/2009 Lumbago with Sciatica [M54.40] 05/21/2009 Transient Hypertension of , Antepartum*08/04/2009 09/08/2009 Oligohydramnios, Antepartum [O41.00X0] 08/26/2009 09/08/2009 Low back pain [M54.50] 02/20/2011 Sacroiliac dysfunction [M53.3] 02/20/2011 Dysthymia [F34.1] 02/25/2011 TMJ arthralgia [M26.629] 12/21/2013 Headache [R51] 12/21/2013 Obesity (BMI 30.0-34.9) [E66.9] 03/25/2014 Hirsutism [L68.0] 05/06/2015 Encounter Status:Closed by Argus, PRODUSER on 02/27/24 [facility] 06-17-2022 Miscellaneous Notes Patient returned call and given provider's message below with verbalized understanding. First call attempt, VM left instructing patient to return call to receive results. Christina Higuera MA Please notify patient that + for yeast on vaginal swab, bacterial vaginosis and trichomonas were negative. GC/Chlamydia still pending - will notify of results. Continue Doxycycline as discussed at visit. Prescription sent to [facility] for fluconazole take one as directed refill for one mango week if still having symptoms. Angela Banegas APRN.MELLISSA documented in this encounter [facility] 06-16-2022 Instructions Carol Jensen APRN.CNP - 06/16/2022 6:01 PM EST Diagnosis: Assessment CHLAMYDIA INFECTIONS: Chlamydia bacteria usually cause genital or urinary infections, but they can also affect the eye or cause a flu-like respiratory disease. Unfortunately, about half the women and men who have chlamydia infections have no symptoms. Infection symptoms can include burning or frequent urination. Women may have abnormal vaginal discharge or bleeding, heavy periods with increased cramping, dull pelvic pain, or a low grade fever. Chlamydia infections of the genital area are usually transmitted by sexual contact, often from someone who has no symptoms. If you are , chlamydia can increase your risk for premature delivery and can cause pneumonia and eye infections in babies. If chlamydia infection goes untreated, it can spread from the cervix area up into the uterus, tubes, and ovaries. This is called pelvic inflammatory disease (PID). PID can cause serious damage to the female reproductive organs resulting in infertility and a greatly increased risk for having a tubal or ectopic . Treatment depends on the seriousness of the infection. Some antibiotics (Zithromax) are effective in a single dose, others may require a full 7 days of treatment. PID may require prolonged or hospital treatment, especially if you are unable to keep your medicine down. There are several different tests, including a culture, which can be done to confirm the presence of Chlamydia. If you are positive for Chlamydia, any sexual partner you have had in the past 3-6 months should be contacted, checked, and treated, even if they have no symptoms. Do not have sex until both you and your partner have finished taking all your medicine. Condoms can help reduce the risk of transmitting chlamydia. Call your doctor if you have any concerns about your infection. Call right away if you have a high fever, severe pain, or if you vomit and cannot hold down your medicine. documented in this encounter [facility] 06-16-2022 History of Presen t illness Narrative Subjective Patient came in with complaints of exposure to chlamydia. Patient says she has had vaginal discharge for 6 days. Patient is unsure if she was exposed anything else. Patient denies any fever chills nausea vomiting. Patient says she does have some slight abdominal cramping but is also due to start her period in the next day or so. Patient denies any other symptoms. The history is provided by the patient. No supervisor modern languages was used. Review of Systems Constitutional: Negative. Skin: Negative. Objective Physical Exam Constitutional: Appearance: Normal appearance. Pulmonary: Effort: Pulmonary effort is normal. Neurological: Mental Status: She is alert. PAST MEDICAL HISTORY Diagnosis Date Abnormal glandular Papanicolaou smear of cervix Abn. Pap smear (cervix) Hirsutism 05/06/2015 Migraine, unspecified, with intractable migraine, so stated, without mention of status migrainosus Migraine induced hypertension 2006,2009 Toxic shock syndrome (HCC) 2005 HELLP syndrome Unspecified asthma(493.90) SPORTS INDUCED CHILDHOOD ASTHMA Vertigo PAST SURGICAL HISTORY Procedure Laterality Date DELIVERY ONLY , low transverse COLPOSCOPY CERVIX UPPER/ADJACENT VAGINA 2001 Colposcopy ALLERGIES Effexor [Venlafaxine Analogues] and Latex MEDICATIONS albuterol HFA (PROVENTIL HFA, VENTOLIN HFA) 90 mcg/actuation inhaler Inhale 2 Puffs as instructed every 4 hours as needed. doxycycline monohydrate (MONODOX) 100 mg capsule Take 1 capsule by mouth twice daily for 7 days. FAMILY HISTORY Problem Relation Age of Onset Alcohol/Drug Father Alzheimer's Disease Maternal Grandmother Cervical Cancer Maternal Aunt Hypertension Mother Hypertension Maternal Uncle Osteoporosis Maternal Grandmother Social History Tobacco Use Smoking status: Every Day Packs/day: 1.00 Years: 6.00 Pack years: 6.00 Types: Cigarettes Smokeless tobacco: Never Substance Use Topics Alcohol use: No Drug use: No ASSESSMENT/PLAN: 1. Vaginal discharge - ICD9: 623.5, ICD10: N89.8 - WAI / TRICHOMONAS AMPLIFICATION - BACTERIAL VAGINOSIS AMPLIFICATION - GC/CHLAMYDIA DNA DET Patient self swabbed patient was treated with doxycycline twice a day for 7 days for chlamydia exposure. If anything else comes back positive please treat at that time thank you Patient was educated about red flag symptoms patient was educated about medication. Patient will follow-up if symptoms seem to be getting worse not better. Patient was okay with this care plan. Carol Jensen APRN.MELLISSA documented in this encounter [facility] 06-27-2021 History of Presen t illness Narrative Radiology Service Progress Note PATIENT NAME: Monserrat Mason DATE OF SERVICE: June 27, 2021 TIME: 8:28 AM PATIENT IDENTITY VERIFICATION COMPLETED USING TWO (2) IDENTIFIERS: Name and Date of confirmed by patient verbally. FALL SCREENING: Has the patient had 2 falls in the last year or 1 fall with injury or currently using an Ambulatory Assistive Device (Walker, Cane, Wheelchair, Crutches, etc.)? No PATIENT GENDER DATA: Female. status: : No status: NO. PATIENT RELEVANT IMPLANT DATA REVIEWED: Not Applicable RADIOLOGY DEPARTMENT: General X-ray: Exam(s) Completed: Upper Extremity X-Ray(s): Shoulder, AP / TRUE AP / AXILLARY right PERIPHERAL IV DATA: Not applicable SIGNED BY: RT Abdulaziz(R) June 27, 2021 8:28 AM documented in this encounter [facility] 08-26-2009 History of Past i llness Narrative Problem Noted Date Resolved Date Oligohydramnios, antepartum 08/26/200908/2009 Transient hypertension of , antepartum 08/04/2009 09/08/2009 Supervision of other high-risk (V23.89) 03/20/2009 09/08/2009 Mild or unspecified pre-eclampsia, antepartum 07/21/2007 Unspecified high-risk 04/29/2007 07/21/2007 Supervision of other high-risk (V23.89) 03/01/2007 07/21/2007 Transient hypertension of , antepartum 03/01/2007 07/21/2007 Supervision of other normal 12/23/2006 03/01/2007 documented as of this encounter (statuses as of 06/16/2022) [facility] History of Past illness Narrative* Problem Noted Date Resolved Date Oligohydramnios, antepartum 08/26/200908/2009 Transient hypertension of , antepartum 08/04/2009 09/08/2009 Supervision of other high-risk (V23.89) 03/20/2009 09/08/2009 Mild or unspecified pre-eclampsia, antepartum 07/21/2007 Unspecified high-risk 04/29/2007 07/21/2007 Supervision of other high-risk (V23.89) 03/01/2007 07/21/2007 Transient hypertension of , antepartum 03/01/2007 07/21/2007 Supervision of other normal 12/23/2006 03/01/2007 documented as of this encounter (statuses as of 06/17/2022) [facility] note* Diagnosis Vaginal discharge- Primary Leukorrhea, not specified as infective [facility] Diagnosis Encounter for screening mammogram for breast cancer documented in this encounter [facility] note* Diagnosis TMJ arthralgia- Primary Arthralgia of temporomandibular joint Headache Obesity (BMI 30.0-34.9)- Primary Obesity, unspecified Dysthymia Dysthymic disorder Routine health maintenance Routine general medical examination at a health care facility Acute pain of right shoulder documented in this encounter [facility] note* Diagnosis TMJ arthralgia- Primary Arthralgia of temporomandibular joint Headache Obesity (BMI 30.0-34.9)- Primary Obesity, unspecified Dysthymia Dysthymic disorder Routine health maintenance Routine general medical examination at a health care facility Encounter for gynecological examination (general) (routine) without abnormal findings- Primary Screening for cervical cancer Screening for malignant neoplasm of the cervix Encounter for screening for human papillomavirus (HPV) Special screening examination for human papillomavirus (HPV) Encounter for screening mammogram for breast cancer documented in this encounter [facility] note* Diagnosis TMJ arthralgia- Primary Arthralgia of temporomandibular joint Headache Obesity (BMI 30.0-34.9)- Primary Obesity, unspecified Dysthymia Dysthymic disorder Routine health maintenance Routine general medical examination at a health care facility Encounter for screening mammogram for breast cancer documented in this encounter [facility] for referral (narrative)* Diagnostic Procedure Only (Routine) - New Request Specialty Diagnoses / Procedures Referred By Faith adrian Referred To Contact [facility] IM[facility] Diagnoses Encounter for screening mammogram for breast cancer Procedures ABDIRAHMAN SCREENING W LUIS SCREENING DIGITAL BREAST TOMOSYNTHESIS BI SCREENING MAMMOGRAPHY BI 2-VIEW BREAST INC Justine Bauer MD [address] [place] [address] [facility] [address] [place] [address] Referral ID Status Reason Start Date Expiration Date Visits Requested Visits Authorized [id number] New Request Auto-Generat ed Referral 02/22/2024 03/23/2025 [address] [facility] for referral (narrative)* Diagnostic Procedure Only (Urgent) - Closed Specialty Diagnoses / Procedures Referred By Contac t Referred To Contact XR IMAGING Diagnoses Acute pain of right shoulder Procedures XR SHOULDER GENERAL 3V OR MORE AP/TRUE AP/OTHER RIGHT X-RAY SHOULDER COMPLET MIN 2 VIEWS Edin Small APRN.BUS ANALYST [address] [place] [address] [place] [id number] Referral ID Status Reason Start Date Expiration Date V isits Requested Visits Authorized [id number] Closed Auto-Generate d Referral 06/26/2021 07/26/2022 [address] [facility] for referral (narrative)* Diagnostic Procedure Only (Routine) - Authorized Specialty Diagnoses / Procedures Referred By Contac t Referred To Contact [facility] Diagnoses Encounter for gynecological examination (general) (routine) without abnormal findings Encounter for screening mammogram for breast cancer Procedures ABDIRAHMAN SCREENING W LUIS SCREENING DIGITAL BREAST TOMOSYNTHESIS BI SCREENING MAMMOGRAPHY BI 2-VIEW BREAST INC Tere Person APRN.BUS ANALYST [address] [place] [address] [facility] [address] [place] [address] Referral ID Status Reason Start Date Expiration Date Visits Requested Visits Authorized [id number] Authorized Auto-Generat ed Referral 06/27/2025 [address] [facility] for visit Narrative* Diagnostic Procedure Only (Urgent) - Closed Specialty Diagnoses / Procedures Referred By Contac t Referred To Contact XR IMAGING Diagnoses Acute pain of right shoulder Procedures XR SHOULDER GENERAL 3V OR MORE AP/TRUE AP/OTHER RIGHT X-RAY SHOULDER COMPLET MIN 2 VIEWS Edin Small APRN.BUS ANALYST [address] [place] [address] [place] [id number] Referral ID Status Reason Start Date Expiration Date V isits Requested Visits Authorized [id number] Closed Auto-Generate d Referral 06/26/2021 07/26/2022 1 1 [facility] Diagnostic Procedure Only (Routine) - Closed Specialty Diagnoses / Procedures Referred By Contac t Referred To Contact [facility] Diagnoses Encounter for screening mammogram for breast cancer Procedures ABDIRAHMAN SCREENING W LUIS SCREENING DIGITAL BREAST TOMOSYNTHESIS BI SCREENING MAMMOGRAPHY BI 2-VIEW BREAST INC Justine Bauer MD [address] [place] [address] [facility] [address] [place] [address] Referral ID Status Reason Start Date Expiration Date V isits Requested Visits Authorized [id number] Closed Auto-Generate d Referral 02/22/2024 03/23/2025 1 1 [facility] Summary Purpose Family History No Family History Records FoundNo Family History Records Found Advance Directives No Advanced Directives Records FoundNo Advanced Directives Records Found Additional Source Comments INFORMATION SOURCE (unrecogn ized section and content) DATE CREATED AUTHOR 06/26/2019 [facility] DATE CREATED AUTHOR AUTHOR'S ORGANIZ ATION 06/03/2024 [facility] Source Comments (unrecognize d section and content) In the event this informatio n is protected by the Federal Confidentiality of Alcohol and Drug Abuse Patient Records regulations: The Federal rules restrict any use of the information to criminally investigate or prosecute any alcohol or drug abuse patient.[facility] the event this information is protected by the Federal Confidentiality of Alcohol and Drug Abuse Patient Records regulations: The Federal rules restrict any use of the information to criminally investigate or prosecute any alcohol or drug abuse patient.[facility] the event this information is protected by the Federal Confidentiality of Alcohol and Drug Abuse Patient Records regulations: The Federal rules restrict any use of the information to criminally investigate or prosecute any alcohol or drug abuse patient.[facility] the event this information is protected by the Federal Confidentiality of Alcohol and Drug Abuse Patient Records regulations: The Federal rules restrict any use of the information to criminally investigate or prosecute any alcohol or drug abuse patient.[facility] the event this information is protected by the Federal Confidentiality of Alcohol and Drug Abuse Patient Records regulations: The Federal rules restrict any use of the information to criminally investigate or prosecute any alcohol or drug abuse patient.[facility] the event this information is protected by the Federal Confidentiality of Alcohol and Drug Abuse Patient Records regulations: The Federal rules restrict any use of the information to criminally investigate or prosecute any alcohol or drug abuse patient.[facility] Reason for Visit (unrecogniz ed section and content) Reason Comments STD check STD check-has been e xposed and is having a discharge x 6 days Reason Comments Results Reason Comments [facility] Teams (unrecognized sec tion and content) Right Of Way Worker Relationship Specialty Start Date End Date Justine Ruano MD [address] [place] [address] PCP - General Internal Medicine 12/21/[address] Worker Relationship Specialty Start Date End Date Justine Ruano MD [address] [place] [address] PCP - General Internal Medicine 12/21/[address] Worker Relationship Specialty Start Date End Date Justine Ruano MD [address] [place] [address] PCP - General Internal Medicine 12/21/[address] Worker Relationship Specialty Start Date End Date Justine Ruano MD [address] [place] [address] PCP - General Internal Medicine 12/21/[address] Worker Relationship Specialty Start Date End Date Justine Ruano MD [address] [place] [address] PCP - General Internal Medicine 12/21/[address] Worker Relationship Specialty Start Date End Date Justine Ruano MD [address] [place] [address] PCP - General Internal Medicine 12/21/13 FOR RECORDS PERTAINING TO PATIENTS WHO ARE OR HAVE BEEN ENROLLED IN A CHEMICAL DEPENDENCY/SUBSTANCEABUSE PROGRAM, SOME INFORMATION MAY BE OMITTED. This clinical summary was aggregated from multiple sources. Caution should be exercised in using it in the provision of clinical care. This summary normalizes information from multiple sources, and as a consequence, information in this document may materially change the coding, format and clinical context of patient data. In addition, data may be omitted in some cases. CLINICAL DECISIONS SHOULD BE BASED ON THE PRIMARY CLINICAL RECORDS. [employer] [facility]. provides no warranty or guarantee of the accuracy or completeness of information in this document.
[2025-01-20 15:51] LABS: Absolute Lymphocyte Count 3.11 X10^3/uL (0.83-4.51); Absolute Neutrophil Count 6.3 X10^3/uL (2.0-7.7); Basophil# 0.06 X10^3/uL; Basophil% 0.6 % (0-1); Eosinophils% 1.9 % (0-5); Hematocrit 39.2 % (37-47); Hemoglobin 12.8 g/dL (12.0-15.0); Lymphocyte # 3.11 X10^3/ul (0.83-4.51); Lymphocyte % 29.7 % (19-41); Mean Corp Hgb Conc 32.7 g/dL (32-36); Mean Corpuscular Volume 79.5 fL (81-99); Mean Platelet Vol. 9.5 fl (6.2-12.0); Monocyte# 0.73 X10^3/uL; NRBC Flagged by Analyzer 0 % (0-5); Neutrophil % 60.2 % (47-70); POSITIVE MORPHOLOGY YES; Platelet Count 312 K/mm3 (150-450); RBC Distribution Width CV 14.1 % (11.6-14.6); RBC Distribution Width SD 40.5 fl (35.1-43.9); Red Blood Count 4.93 M/mm3 (4.2-5.4); White Blood Count 10.5 K/mm3 (4.4-11.0)
[2025-01-20 16:04] LABS: Differential Indicated SCAN CRITERIA MET
[2025-01-20 16:05] LABS: Platelet Estimate ADEQUATE (ADEQ); Red Cell Morphology NORM C+C NORMAL (NORM C&C)
--- NOTE | 2025-01-20 16:05 | CM.ED ---
Social Work Date of referral: 01/20/25 Reason for referral: No PCP Referred by: Social Work identification Patient provided consent to social work visit. Banking Manager provided patient with a written handout for [facility] which patient accepted and expressed appreciation for. No other concerns/requests noted at this time. Luiza Olivo, WATER SOFTENER SERVICER AND INSTALLER, ENTERPRISE APPLICATION ADMINISTRATOR
--- NOTE | 2025-01-20 16:05 | ED.RN ---
radiology goes into the room to attempt to get chest xray. pt states to blister rust eradicator that she does not want the chest xray because she cannot afford anymore charges but she would like to talk to dr heard first. dr heard updated at this time
[2025-01-20 16:13] LABS: Anion Gap 12 (5-15); BUN 11 mg/dL (4-19); BUN/Creat Ratio 13.2 RATIO (10-20); Carbon Dioxide 21.4 mmol/L (21.0-32.0); Chloride 106 mmol/L (98-108); EST Glomerular Filtration Rate 95 (>60); Estimated Creatinine Clearance 113.49 ml/min (50-250); Glucose 93 mg/dL (70-99); Potassium 4.3 mmol/L (3.3-5.1); Sodium Level 139 mmol/L (133-145)
[2025-01-20] MEDS: Ampicillin/Sulbactam 3 GM in 0.9% Normal Saline (100mL MB+) 100 ML IV (16:17)
[2025-01-20 16:26] LABS: Troponin T High Sensitivity < 6 ng/L (<=14)
[2025-01-20 16:33] VITALS: BP 168/103; PULSE 67; RESP 22; O2SAT 98
[2025-01-20 17:38] VITALS: BP 155/99; PULSE 61; RESP 20; TEMP 36.6; O2SAT 99
== END 2025-01-20 17:45 | disposition home or self-care (01) ==
PROVIDERS: Emergency Provider Emergency Medicine; Visit Provider Emergency Medicine
DX: L03.116 Cellulitis of left lower limb (principal); R03.0 Elevated blood-pressure reading, without diagnosis of hypertension; S70.262A Insect bite (nonvenomous), left hip, initial encounter; W57.XXXA Bitten or stung by nonvenomous insect and other nonvenomous arthropods, initial encounter; J45.909 Unspecified asthma, uncomplicated; F17.200 Nicotine dependence, unspecified, uncomplicated
CPT/HCPCS: 80048; 84484; 85025; 93005; 99285; A4216; J0295

== ENCOUNTER → 2025-02-22 | Outpatient (CLI) | payer OTHER, SELFPAY ==
[2025-02-22 17:51] LABS: Hematocrit 38.5 % (37-47); Hemoglobin 12.4 g/dL (12.0-15.0); Immature Granulocytes Count 0.050 X10^3/uL (0.0-0.0); Mean Corp Hgb Conc 32.2 g/dL (32-36); Mean Corpuscular Volume 79.5 fL (81-99); Mean Platelet Vol. 8.9 fl (6.2-12.0); NRBC Flagged by Analyzer 0 % (0-5); POSITIVE MORPHOLOGY YES; Platelet Count 335 K/mm3 (150-450); RBC Distribution Width CV 13.7 % (11.6-14.6); RBC Distribution Width SD 39.6 fl (35.1-43.9); Red Blood Count 4.84 M/mm3 (4.2-5.4); White Blood Count 12.3 K/mm3 (4.4-11.0)
[2025-02-22 17:52] LABS: Differential Indicated SCAN CRITERIA MET
[2025-02-22 18:22] LABS: Differential Comment SCANNED; Reactive Lymphocyte RARE
[2025-02-22 18:46] LABS: AST(SGOT) 19 U/L (<=31); Alanine Aminotransfer ALT/SGPT 20 U/L (<=34); Albumin, Serum 4.5 g/dL (3.5-5.0); Alkaline Phosphatase 123 U/L (35-104); Anion Gap 14 (5-15); BUN 8 mg/dL (4-19); BUN/Creat Ratio 11.1 RATIO (10-20); Calcium,Total 9.5 mg/dL (7.6-11.0); Carbon Dioxide 23.2 mmol/L (21.0-32.0); Chloride 103 mmol/L (98-108); Cholesterol 199 mg/dL (<=200); Globulin 3.1 g/dL (2.2-4.2); Glucose 88 mg/dL (70-99); Low Density Lipoprotein Calc. 122 mg/dL; Potassium 4.4 mmol/L (3.3-5.1); Triglycerides 78 mg/dL; Very Low Density Lipoprotein 16 mg/dL (5-40); Vitamin B12 334 pg/mL (180-914); Vitamin D,25 Hydroxy 22.9 ng/mL (30-100); cholesterol:hdl ratio screen 3.24
== END | disposition home or self-care (01) ==
PROVIDERS: PCP Family Medicine; Referring Provider Family Medicine; Visit Provider Family Medicine
DX: E66.9 Obesity, unspecified (principal); R53.83 Other fatigue
CPT/HCPCS: 36415; 80053; 80061; 82306; 82607; 84439; 84443; 85025; 86706